=== PATIENT | female | born 1940 | race Caucasian/White ===

== ENCOUNTER 2016-11-07 16:59 | Outpatient (CLI) | payer MEDICARE, OTHER ==
--- NOTE | 2016-11-07 17:52 | RAD ---
EXAM: CHEST TWO VIEWS 11/07/16 COMPARISON: 11/17/12. HISTORY: Acute bronchitis. FINDINGS: Two views chest: Normal cardiac silhouette. Pulmonary vessels and hilum are normal. Costophrenic angles are clear. Ignacia ngs are hyperinflated. Focal opacity in the left lower lobe is noted, best appreciated on the PA pro jection. Left lower lobe infiltrate is suspected. Lungs are hyperinflated. No pneumothorax or osseou s abnormality. IMPRESSION: Left lower lobe infiltrate. Continued surveillance is recommended. POS: [facility]
== END 2016-11-07 17:00 | disposition home or self-care (01) ==
LOC: MADRAD 16:59
PROVIDERS: ATTEND Family Medicine
DX: J20.9 Acute bronchitis, unspecified (principal)
CPT/HCPCS: 71020

== ENCOUNTER 2016-12-13 17:15 | Outpatient (CLI) | payer MEDICARE, OTHER ==
--- NOTE | 2016-12-13 17:49 | RAD ---
PA AND LATERAL OF THE CHEST: 12/13/16 INDICATION: History of basilar pneumonia. COMPARISON: Prior exam dated 11/07/16. FINDINGS: Left basilar pneumonia has resolved from the comparison exam. There is stable chronic lung changes. Heart size is upper limits of normal. Multilevel spondylosis of the thoracic spine is similar. IMPRESSION: Resolved left lower lobe pneumonia. POS: [facility]
== END 2016-12-13 17:16 | disposition home or self-care (01) ==
LOC: MADRAD 17:15
PROVIDERS: ATTEND Family Medicine
DX: J18.9 Pneumonia, unspecified organism (principal)
CPT/HCPCS: 71020

== ENCOUNTER 2019-07-20 14:21 | Outpatient (CLI) | payer MEDICARE, OTHER ==
[2019-07-20 14:38] LABS: Bilirubin Negative (Negative); Blood, Urine Trace (Negative); Glucose, Urine (Dipstick) Negative (Negative); Leukocyte Trace (Negative); Nitrite Negative (Negative); Protein, Urine (Dipstick) Negative (Neg-Trace)
[2019-07-20 14:44] LABS: Clarity Hazy (Clear)
[2019-07-20 14:46] LABS: Bacteria/HPF Rare-Few HPF (None Seen); RBC/HPF 0-3 HPF (0-3); Squamous Epithelial 0-3 HPF (0-3); WBC/HPF 21-50 HPF (0-3)
== END 2019-07-20 14:22 | disposition home or self-care (01) ==
LOC: MADLAB 14:21
PROVIDERS: ATTEND Family Medicine
DX: R30.0 Dysuria (principal)
CPT/HCPCS: 81001; 87086

== ENCOUNTER 2020-09-19 16:40 | Emergency (ER) | payer MEDICARE ==
[~2020-09-19 16:40] MED LIST: Iopamidol 370 76% 125 ML VIAL FS ONE
[2020-09-19] MEDS ORDERED: Meclizine HCl 25 MG TAB ONE (17:54)
[2020-09-19] MEDS ORDERED: Sodium Chloride 0.9% 500 ML ONE (17:54)
[2020-09-19 18:01] LABS: #Basophils 0.1 thou/uL (0.0-0.2); #Eosinphils 0.3 thou/uL (0.0-0.7); #Lymphocytes 2.2 thou/uL (1.20-3.40); #Monocytes 0.7 thou/uL (0.11-0.59); %Basophils 1.2 % (0.0-1.0); %Eosinophils 2.8 % (0.0-10.0); %Monocytes 7.8 % (0.0-10.0); %Neutrophils 64.2 % (42.0-75.0); Hemoglobin 12.7 g/dL (12.0-16.0); Mean Corpuscular HGB CONC 32.9 g/dL (32.0-36.0); Mean Corpuscular Hemoglobin 31.2 pg (27.0-31.0); Mean Corpuscular Volume 94.9 fL (78.0-98.0); Mean Platelet Volume 7.3 fL (7.4-10.4); Platelet Count 257 thou/uL (130-400); RBC Distribution Width 11.3 % (11.5-14.5); Red Blood Cell (RBC) Count 4.07 mill/uL (4.20-5.40); White Blood Cell (WBC) Count 9.3 thou/uL (4.8-10.8)
[2020-09-19 18:03] LABS: INR-International Normal Ratio 0.8; PTT 28.6 sec (22.9-36.1); Prothrombin Time 11.5 sec (12.0-14.7)
[2020-09-19 18:14] LABS: ALT (SGPT) 20 U/L (8-55); AST (SGOT) 22 U/L (5-34); Albumin 4.4 g/dL (3.4-4.8); Alkaline Phosphatase 83 U/L (40-110); Anion Gap 15 mmol/L (10-20); BUN (Urea Nitrogen) 25 mg/dL (9.8-20.1); Bilirubin, Total 0.3 mg/dL (0.2-1.2); Calc. Creatinine Clearance 0 mL/min (70-130); Calcium 10.1 mg/dL (7.8-10.44); Carbon Dioxide 25 mmol/L (23-31); Chloride 105 mmol/L (98-107); Globulin 2.6 g/dL (2.4-3.5); Glucose 141 mg/dL (83-110); Potassium 3.8 mmol/L (3.5-5.1); Sodium 141 mmol/L (136-145)
--- NOTE | 2020-09-19 18:23 | CT ---
CT OF BRAIN PERFORMED WITHOUT CONTRAST ENHANCEMENT: History: Syncope FINDINGS: There is some generalized ventricular and sulcal prominence with decreased attenuation to the periven tricular white matter, consistent with some chronic ischemic white matter change. There is no signs o f intracerebral hemorrhage or extraaxial fluid collections. Mastoid air cells are clear. There is a r etention cyst within the right maxillary sinus. IMPRESSION: No acute intracranial abnormalities. POS: OFF
--- NOTE | 2020-09-19 18:24 | RAD ---
PORTABLE CHEST: History: Syncope Comparison: 12-13-16 FINDINGS: Heart size and mediastinum are within normal limits. The lungs are clear of infiltrates. No significa nt bony findings. IMPRESSION: No active intrathoracic disease. POS: OFF
--- NOTE | 2020-09-19 19:39 | CT ---
CT ANGIO OF HEAD AND NECK PERFORMED WITH INTRAVENOUS CONTRAST ENHANCEMENT AND 3D RECONSTRUCTIONS: History: Syncopal episode FINDINGS: The lung apices are clear. Thyroid gland region appears unremarkable. Vocal cords are normal in appearance. No jugular chain manjeet nopathy. Parapharyngeal spaces are clear. Parotid and submandibular glands appear unremarkable. The angiographic portion of this examination showed a separate origin of the left common carotid zoe ry from the aortic arch. The vertebral arteries are co-dominant. The right common internal and external carotid arteries show no significant stenosis by NASCET criter ia. Also, no significant stenosis on the left. There is plaque formation at the origin of both project internship al carotid arteries. CT ANGIO OF HEAD PERFORMED WITH INTRAVENOUS CONTRAST ENHANCEMENT AND 3D RECONSTRUCTIONS: Anterior and middle cerebral arteries and their branches appear unremarkable. The vertebral basilar s ystem is normal. IMPRESSION: Unremarkable CT angio of head and neck. POS: OFF
== END 2020-09-19 19:56 | disposition short-term general hospital (02) ==
LOC: MADERS 16:40
DX: I67.9 Cerebrovascular disease, unspecified (principal); G25.89 Other specified extrapyramidal and movement disorders; R42 Dizziness and giddiness; G47.00 Insomnia, unspecified; E03.9 Hypothyroidism, unspecified; E78.5 Hyperlipidemia, unspecified; E78.00 Pure hypercholesterolemia, unspecified; I10 Essential (primary) hypertension; Z79.82 Long term (current) use of aspirin
CPT/HCPCS: 70450; 70496; 70498; 71045; 80053; 84484; 85025; 85610; 85730; 93005; 96365; J2997; J7030; Q9967

== ENCOUNTER 2021-02-08 11:14 | Outpatient (CLI) | payer MEDICARE ==
[2021-02-08 11:49] LABS: Bilirubin Negative (Negative); Blood, Urine Trace (Negative); Clarity Cloudy (Clear); Glucose, Urine (Dipstick) Negative (Negative); Ketone, Urine Negative (Negative); Leukocyte Large (Negative); Nitrite Positive (Negative); Protein, Urine (Dipstick) 30 mg/dL (Neg-Trace)
[2021-02-08 11:50] LABS: Anion Gap 16 mmol/L (10-20); BUN (Urea Nitrogen) 15 mg/dL (9.8-20.1); Calc. Creatinine Clearance 0 mL/min (70-130); Calcium 9.7 mg/dL (7.8-10.44); Carbon Dioxide 23 mmol/L (23-31); Chloride 107 mmol/L (98-107); Glucose 93 mg/dL (83-110); Potassium 4.4 mmol/L (3.5-5.1); Sodium 142 mmol/L (136-145)
[2021-02-08 12:07] LABS: Bacteria/HPF 4+ HPF (None Seen); WBC/HPF Greater Than 50 HPF (0-3)
== END 2021-02-08 11:15 | disposition home or self-care (01) ==
LOC: MADLAB 11:14
PROVIDERS: ATTEND Family Medicine
DX: I11.9 Hypertensive heart disease without heart failure (principal); R30.0 Dysuria
CPT/HCPCS: 36415; 80048; 81001; 87077; 87086; 87186

== ENCOUNTER 2025-08-13 20:15 | Emergency (ER) | payer OTHER ==
[2025-08-13] MEDS ORDERED: Gabapentin 100 MG CAP ONE (20:50)
[2025-08-13] MEDS ORDERED: Acetaminophen 325 MG TAB ONE (20:50)
== END 2025-08-13 21:03 | disposition home or self-care (01) ==
LOC: MADERS 20:15
DX: B02.22 Postherpetic trigeminal neuralgia (principal); E03.9 Hypothyroidism, unspecified; I10 Essential (primary) hypertension; E78.00 Pure hypercholesterolemia, unspecified; Z79.82 Long term (current) use of aspirin; Z79.899 Other long term (current) drug therapy
CPT/HCPCS: 99283